=== PATIENT | female | born 1940 | race Caucasian/White ===

== ENCOUNTER 2016-09-28 19:35 | Emergency (ER) | payer SELFPAY ==
--- NOTE | ~2016-09-28 | EKG ---
PATIENT: JACEK VALLE UNIT #: [id number] Ventricular Rate: 78 BPM Atrial Rate: 78 BPM P-R Interval: 152 ms QRS Duration: 78 ms Q-T Interval: 384 ms QTC Calculation(Bezet): 437 ms P [place]: 42 degrees Calculated R [place]: 15 degrees Calculated T [place]: 37 degrees Diagnosis Line: Normal sinus rhythm Diagnosis Line: Low voltage QRS Diagnosis Line: Borderline ECG Diagnosis Line: When compared with ECG of 23-SEP-2015 18:46, Diagnosis Line: Nonspecific T wave abnormality now evident in Diagnosis Line: Anterior leads Diagnosis Line: Confirmed by BRITT GONZALEZ MD ([id number]) on Diagnosis Line: 09/30/2016 2:52:12 PM INTERPRETING MD: LISA AREVALO
--- NOTE | ~2016-09-28 | CT71 ---
[facility] A Service [facility] RADIOLOGY TEXT RESULTS PATIENT: JACEK VALLE LOCATION: SED : 41 UNIT #: [id number] AGE: [address]: Jesus Manley MD SEX: F ORDER DR: [id number] [address] [address] [id number] MR#: [id number] #: [id number] NAME: JACEK VALLE. : 1940 SEX: F STUDY DATE/TIME: 09/28/2016 19:38 UNIT: SED ROOM: STUDY DESCRIPTION: CT Head Wo Contrast Attending Physician: Jesus Manley M.D. Ordering Physician: Jesus Manley M.D. Primary Care Physician: Emily Powell M.D. MEDICAL IMAGING REPORT This report is preliminary unless electronic signature is present. EXAM Noncontrast head CT HISTORY 76-year-old female complains of seeing floaters since yesterday. Also says seeing things that are not there. COMPARISON Head CT 09/23/2015. TECHNIQUE This CT examination was performed with one or more of the following radiation dose reduction techniques: automatic exposure control, adjustment of mA and/or kV according to patient size, and iterative reconstruction. FINDINGS Axial noncontrast imaging of the brain demonstrates mild generalized atrophy. Decreased attenuation of the periventricular white matter may reflect chronic microvascular disease. No large vessel infarcts. No mass, mass effect or midline shift. Bony calvaria, skull base, mastoids, sinuses unremarkable. IMPRESSION No acute intracranial abnormality identified. Study is unchanged from 09/23/2015. Generalized atrophy with probable chronic microvascular disease. Dictated by... Smita Caraballo M.D. [facility] A Service [facility] RADIOLOGY TEXT RESULTS PATIENT: JACEK VALLE LOCATION: SED : 41 UNIT #: [id number] AGE: [address]: Jesus Manley MD SEX: F ORDER DR: THIS IS AN ELECTRONICALLY VERIFIED REPORT Smita Caraballo M.D. at 09/29/2016 5:11 PM CLARA/hany TD: 09/29/2016 08:43 JOB #: [id number] MEDICAL IMAGING REPORT
[~2016-09-28 19:35] MED LIST: ASPIRIN PO; ASPIRIN81 MG PO; CARTIA XT PO; CARTIA XT240 M1 PO; DILTIAZEM 24HR240 MG PO; DOXYCYCLINE PO; LOPRESSOR PO; LOTREL 5/10 MG1 CAP PO; METOPROLOL TAR25 MG PO; VIBRAMYCIN100 M1 PO
[2016-09-28 19:40] LABS: BASOPHIL# 0.1 X10e3 (0-0.3); BASOPHIL% 1.1 % (0-2.5); EOSINOPHIL# 0.1 X10e3 (0-0.7); EOSINOPHIL% 1.9 % (0.0-7.0); HEMATOCRIT 41.1 % (35.0-45.0); HEMOGLOBIN 13.4 gm/dL (12.0-16.0); LYMPHOCYTE% 41.6 % (17.0-45.0); MEAN CORPUSCULAR HEMOGLOBIN 29.7 PG (28-34); MEAN CORPUSCULAR HGB CONC 32.6 g/dL (30-36); MEAN PLATELET VOLUME 8.1 FL (6.5-11.5); MONOCYTE# 0.4 X10e3 (0-1.0); MONOCYTE% 7.4 % (3.0-12.0); NEUTROPHIL# 2.3 X10e3 (1.5-7.1); PLATELET COUNT 248 X10e3 (140-420); RED BLOOD COUNT 4.52 X10e (3.90-5.30); RED CELL DISTRIBUTION WIDTH 13.3 % (11.0-15.5); WHITE BLOOD COUNT 4.9 X10e3 (4.0-10.5)
[2016-09-28 19:41] LABS: DIFF IND NO
[2016-09-28 20:00] LABS: ALBUMIN SERUM 3.9 g/dL (3.5-5.0); ALKALINE PHOSPHATASE 73 U/L (32-92); ALT (SGPT) 16 U/L (10-40); AST (SGOT) 16 U/L (10-42); BILIRUBIN,TOTAL 0.4 mg/dL (0.2-2.0); BLOOD UREA NITROGEN 21 mg/dL (9-23); BUN/CREATININE RATIO 26.25; CALCIUM SERUM 9.3 mg/dL (8.4-10.2); CARBON DIOXIDE 29 mmol/L (22-31); CHLORIDE 104 mmol/L (100-111); CREATININE SERUM 0.8 mg/dL (0.6-1.4); GLOM FILT RATE Estimated ABOVE60 mL/min (>60); GLUCOSE FASTING 126 mg/dL (70-110); POTASSIUM 3.5 mmol/L (3.5-5.1); PROTEIN TOTAL SERUM 7.9 g/dL (6.0-8.3)
[2016-09-28 20:01] LABS: BILIRUBIN, DIRECT <0.1 mg/dL (0.0-0.2); BILIRUBIN,INDIRECT 0.3 mg/dL (0.0-0.9); SODIUM 138 mmol/L (135-145)
[2016-09-28 20:17] LABS: URINE SOURCE CLEAN CATCH
[2016-09-28 20:20] LABS: URINE APPEARANCE CLEAR; URINE BILIRUBIN NEG (NEG); URINE BLOOD NEG (NEG); URINE COLOR YELLOW; URINE GLUCOSE NEG (NORM); URINE KETONE NEG (NEG); URINE LEUKOCYTE ESTERASE 1+ (NEG); URINE NITRATE NEG (NEG); URINE PROTEIN NEG (NEG); URINE SPECIFIC GRAVITY 1.025 (1.003-1.035); URINE UROBILINOGEN 0.2 MG/DL (NORM)
[2016-09-28 20:26] LABS: CULTURE INDICATED? YES; MICRO INDICATED? YES; URINE BACTERIA NEG (NEG); URINE RBC 0-2 /[HPF] (0-2)
[2016-09-28 20:27] LABS: URINE AMORPHOUS SEDIMENT AMORP URATES; URINE MUCUS PRESENT; URINE SQUAMOUS EPITHELIAL CELL OCCAS /[HPF]; URINE TRANSITIONAL EPI CELLS FEW /[HPF]
[2016-09-28 20:30] LABS: AMPHETAMINE NEG (NEG); BARBITURATES NEG (NEG); BENZODIAZEPINES NEG (NEG); COCAINE NEG (NEG); MARIJUANA NEG (NEG); OPIATES NEG (NEG); TRICYCLIC ANTIDEPRESSANTS NEG (NEG); U METHADONE NEG (NEG)
[2016-09-28] MEDS ORDERED: CIPRO PO (21:41)
== END 2016-09-28 21:42 | disposition home or self-care (01) ==
LOC: SED 19:35
PROVIDERS: Emergency Medicine
DX: R44.1 Visual hallucinations (principal); N39.0 Urinary tract infection, site not specified; Z88.0 Allergy status to penicillin; Z88.2 Allergy status to sulfonamides; Z79.899 Other long term (current) drug therapy
CPT/HCPCS: 36415; 70450; 80048; 80076; 80307; 81003; 85025; 87086; 93005; 99284